=== PATIENT | female | born 1950 | race Caucasian/White ===

== ENCOUNTER 2017-02-05 21:48 | Emergency (ER) | payer MEDICARE, OTHER ==
[~2017-02-05] VITALS: Ht 160 cm; Wt 63.6 kg
[2017-02-05 21:56] VITALS: BP 113/71; PULSE 57; RESP 16; O2SAT 100
[2017-02-05] MEDS ORDERED: LEVO50TA6 PO (21:59)
--- NOTE | 2017-02-05 22:26 | ED.REPORT ---
HPI-Back Pain 40 and Over Date of Service Feb 05, 2017 ED Provider: Bharat Echavarria MD Pt is a 66 year old female with a history of herniated disc who presents to the ED complaining of non-radiating lumbar back pain onset this morning. She denies numbness, weakness, bowel-related symptoms, fever, extremity pain, and dysuria. Pt describes her pain as a sharp pain and rates it as a 10/10. The pt was given 1 hydrocodone with no relief. Per pt, she has been active this past week with exercising and yard work. Nursing Notes Stated Complaint: BACK PAIN Chief Complaint: Back Pain or Injury Nursing Notes Reviewed: Yes ([facility], MEDS NOT RECONCILED) Allergies: Coded Allergies: Sulfa (Sulfonamide Antibiotics) (Verified Allergy, Unknown, Hives, 02/05/17) Scheduled Levothyroxine (Levothyroxine) 50 Mcg Tablet 50 MCG PO DAILY Scheduled PRN Docusate Sodium (Colace) 100 Mg Capsule 100-200 MG PO DAILY PRN PRN For Constipation Ondansetron ODT (Ondansetron ODT) 8 Mg Tab.rapdis 8 MG PO Q4H PRN PRN For Nausea Polyethylene Glycol 3350 (Miralax) 17 Gm Powd.pack 17 GM PO DAILY PRN PRN For Constipation oxyCODONE-Acetaminophen 5-325 mg (oxyCODONE-Acetaminophen 5-325 mg) 1 Each Tablet 1-2 TAB PO Q4H PRN PRN For Pain General Time Seen by MD: 22:23 Chief Complaint Back pain Hx Obtained From: Patient Arrived By: Walk-in Sudden in Onset?: No Onset Occurred: 5 - 8 hours ago Symptom Duration: Since onset Location: : Perispinal lumbar: Spinal lumbar area Quality: Painful, Sharp Radiation: : Does not radiate Severity: Current: Pain level 10 out of 10 Severity: Maximum: Pain level 10 out of 10 Recent Healthcare: No recent doctor visit, No recent hospitalization Similar Sx Previous: No Past Medical History Past Medical History Herniated disc Past Surgical History Reports: Cholecystectomy, Hysterectomy Smoking History Unknown if Ever Smoker Social History Alcohol Use: "Social" Drug Use: Denies drug use Other Social History: Good social support Review of Systems Constitutional: Denies: Weakness - generalized GI: Denies: Constipation, Diarrhea, Hematochezia Female: Denies: Dysuria Musculoskeletal: Reports: Back pain, Denies: Extremity pain Neurologic: Denies: Numbness Complete sys rev & neg: except as marked. Physical Exam Initial Vital Signs Vital Signs (First) Date Time Temp Pulse Resp B/P Pulse Ox O2 Delivery O2 Flow Rate FiO2 02/05/17 21:56 36.1 57 16 113/71 100 Room Air Initial VS: Reviewed, Vital signs normal Head / Eyes: Atraumatic, Normocephalic Neck: Supple, Full range of motion Extremities: Vascular intact, Neuro intact Skin: Warm, Dry, No cyanosis Psychiatric: Mood/affect normal, Behavior normal General/Constitutional: Awake, Alert Holding still and uncomfortable. Respiratory / Chest: Atraumatic, Breath sounds NL, Breath sounds = bilat Cardiovascular: Heart rate NL, Regular rhythm, Heart sounds NL Abdomen: Atraumatic, Soft, Non-tender Back: Atraumatic, Full range of motion Lumbar tenderness Neurologic: Oriented X3, Speech NL, No motor deficits, No sensory deficits Interpretation & Diagnostics Lab Results Interpretation Test 02/06/17 00:45 Hold Purple Top Tube Received (Received) Hold Blue Top Tube Received (Received) Hold [place] Top Tube Received (Received) Hold [place] Top Tube Received (Received) Re-Eval/Medical Decision Med Decision/Clinical Course This is a 66-year-old healthy female presents complaining of nontraumatic back pain. She has been doing lots of workouts, and yard work moving rocks, but did not have a specific injury. She woke up with a sore lumbar pain. It is clearly mechanical with pain with any movement twisting. There is no radiation , no neurologic symptoms, no bowel or bladder symptoms. She generally tries to avoid any medications, but the pain is times severe enough she took a single hydrocodone with inadequate relief. Ultimately really could not maneuver around called EMS. On arrival she is in moderate pain. She has a normal neurologic exam. She has no fever or recent instrumentation or risk for epidural abscess. Her history and exam both strong suggest muscle skeletal etiology, again is atraumatic. She has no high risk features to indicate immediate neuro imaging. She received a dose of Dilaudid and Zofran, but developed significant nausea following this received a second dose of Zofran and then a dose of Phenergan and Toradol all-old male with improvement. Discharge with some ibuprofen, some when necessary oxycodone and ondansetron. Routine precautions reviewed. Source of Hx: Old records Re-Evaluation/Progress #1: Time of Eval: 22:35 Re-Evaluation/Progress Note: Informed pt of plan for treatment. Pt understands and agrees with plan for admission. All questions addressed. Re-Evaluation/Progress #2: Time of Eval: 23:40 Re-Evaluation/Progress Note: Pt rechecked. Informed pt of plan for discharge. Pt understands and agrees with plan for discharge. F/U instructions and RTER warnings given. All questions addressed. Differential Diagnosis: Positive: Musculoskeletal pain, Negative: Aortic dissection, Bowel obstruction, Cauda equina syndrome, Ectopic , Epidural abscess, Epidural hematoma, Sciatica Counseled Regarding: Diagnosis, Need for follow-up, When/why to return to ED Discharge & Departure Impression: Primary Impression: Lumbosacral strain Disposition: Home Discharge Condition All VS Reviewed: Yes Condition: Stable Additional Instructions: 1. No heavy lifting. Other activities as tolerated - take it easy, but early mobilization and being up and about has been demonstrated to improve symptoms best of any intervention. 2. Take ibuprofen 400mg three times a day for pain as needed. 3. If needed for more severe pain take oxycodone/APAP 5/325 1-2 tabs up to every 4-6 hours. NOTE: This medication contains a narcotic and causes drowsiness. NO Driving for at least 4 hours after taking. 4. If needed for nausea take ondansetron (you can take 10 minutes prior to oxycodone) up to every 4 hours. 5. To help with constipation I recommend (most gentle) colace 100-200mg a day and/or Miralax (1 heaping tablespoon in at least 4 ounces) Referrals: Angelina Colunga ND (PCP) Scribe Attestation Portions of this note were transcribed by Celina Fuentes. I, Dr. Echavarria personally performed the history, physical exam and medical decision-making; I reviewed and confirmed the accuracy of the information in the transcribed note. Signed by: Amber Suresh, 02/05/17. copies to: Angelina Colunga ND, Matthew F MD Feb 05, 2017 22:26 Celina Kim Feb 05, 2017 22:33
[2017-02-05] MEDS ORDERED: Ondansetron 8 mg ODT Tablet PO ONE (22:40)
[2017-02-05] MEDS ORDERED: HYDROmorphone 1 mg/mL Inj IM ONE (22:40)
[2017-02-05] MEDS ORDERED: _Ondansetron ODT 4 mg Tablet PO PRN (23:55)
[2017-02-05] MEDS ORDERED: _oxyCODONE/APAP 5-325 mg Tablet PO PRN (23:55)
[2017-02-06] MEDS ORDERED: OXYC1TAB24 PO (00:01)
[2017-02-06] MEDS ORDERED: ONDA8TAB10 PO (00:01)
[2017-02-06] MEDS ORDERED: POLY17PO6 PO (00:01)
[2017-02-06] MEDS ORDERED: DOCU-41 PO (00:01)
[2017-02-06] MEDS ORDERED: Ondansetron 8 mg ODT Tablet PO ONE (00:15)
[2017-02-06] MEDS ORDERED: Promethazine Inj 12.5 MG in Dextrose 5%-Pha MIX 50 ML IV ONE (00:35)
[2017-02-06 04:30] VITALS: BP 106/64; PULSE 74; RESP 16; O2SAT 99
[2017-02-06 06:07] VITALS: BP 106/64; PULSE 54; RESP 18; O2SAT 98
== END 2017-02-06 06:00 | disposition home or self-care (01) ==
LOC: SED 21:48
DX: S39.012A Strain of muscle, fascia and tendon of lower back, initial encounter (principal); X50.3XXA Overexertion from repetitive movements, initial encounter; Y93.89 Activity, other specified; Y92.9 Unspecified place or not applicable; Y99.8 Other external cause status; Z88.2 Allergy status to sulfonamides
CPT/HCPCS: 96372; 96374; 96375; 99284; J1170; J1885; J2550